=== PATIENT | male | born 1985 | race African-American/Black ===

== ENCOUNTER 2025-06-04 15:16 | Emergency (ER) | payer MEDICAID ==
[~2025-06-04] VITALS: Ht 175.3 cm; Wt 61.0 kg
[2025-06-04 15:28] VITALS: O2SAT 99
[2025-06-04] MEDS ORDERED: NAPR-1494 MT (16:30)
[2025-06-04 16:53] VITALS: BP 115/73; PULSE 78; RESP 16; TEMP 36.8; O2SAT 99
[2025-06-04] MEDS: KETOROLAC 15MG/ML VIAL IM ONE (16:55)
== END 2025-06-04 16:54 | disposition home or self-care (01) ==
LOC: ER 15:28
DX: S42.201A Unspecified fracture of upper end of right humerus, initial encounter for closed fracture (principal); Z79.1 Long term (current) use of non-steroidal anti-inflammatories (NSAID); X58.XXXA Exposure to other specified factors, initial encounter; Y93.21 Activity, ice skating; Y92.89 Other specified places as the place of occurrence of the external cause; Y99.8 Other external cause status
CPT/HCPCS: 99283; 73030; 96372; J1885; A4565